=== PATIENT | male | born 1955 | race Caucasian/White ===

== ENCOUNTER 2020-10-29 21:33 | Emergency (ER) | payer OTHER ==
[2020-10-29 22:36] LABS: BASOPHIL 0.5 % (0-2); EOSINOPHIL 1.2 % (0-7); HCT 39.5 % (42.0-52.0); HGB 13.4 g/dl (13.2-18.0); LYMPHOCYTE 18.5 % (15-48); MCH 30.9 pg (25.0-31.0); MCHC 33.9 g/dL (32.0-36.0); MCV 91.2 fL (78.0-100.0); MONOCYTE 7.2 % (0-12); MPV 9.8 fL (6.0-9.5); NEUTROPHIL 72.2 % (41-80); NRBC 0; PLT 263 K/uL (150-400); RBC 4.33 M/uL (4.70-6.00); RDW 13.4 % (11.5-14.0); WBC 10.6 K/uL (4.0-10.5)
[2020-10-29 22:53] LABS: ALBUMIN 4.1 g/dL (3.4-5.0); BILIRUBIN - TOTAL 0.3 mg/dL (0.2-1.0); BUN/CREAT RATIO (CALC) 21.1 RATIO; CREATININE 0.9 mg/dL (0.67-1.17); GLOBULIN (CALCULATION) 3.6 g/dL; POTASSIUM 4.5 mmol/L (3.5-5.1); TOTAL PROTEIN 7.7 g/dL (6.4-8.2)
[2020-10-30] MEDS ORDERED: IBUPROFEN800 MG PO ×2 (00:14→00:15)
== END 2020-10-30 00:25 | disposition home or self-care (01) ==
LOC: FER 21:33
PROVIDERS: Emergency Medicine Emergency Medical Services
DX: S00.83XA Contusion of other part of head, initial encounter (principal); S00.412A Abrasion of left ear, initial encounter; I10 Essential (primary) hypertension; E11.9 Type 2 diabetes mellitus without complications; Z79.84 Long term (current) use of oral hypoglycemic drugs; Z79.899 Other long term (current) drug therapy; W10.9XXA Fall (on) (from) unspecified stairs and steps, initial encounter; Y92.009 Unspecified place in unspecified non-institutional (private) residence as the place of occurrence of the external cause
CPT/HCPCS: 36415; 70450; 70486; 71045; 72125; 80053; 85025; G0480; J1170; J1885; J2270; J2405

== ENCOUNTER → 2020-10-30 | Emergency (ER) | payer OTHER ==
[~2020-10-30] MED LIST: IBUPROFEN800 MG PO
== END | disposition home or self-care (01) ==
LOC: FER 12:31
DX: E87.8 Other disorders of electrolyte and fluid balance, not elsewhere classified (principal); Z53.8 Procedure and treatment not carried out for other reasons